=== PATIENT | female | born 1955 | race Caucasian/White ===

== ENCOUNTER 2019-06-10 21:12 | Emergency (ER) | payer OTHER ==
[~2019-06-10] VITALS: Ht 149.9 cm; Wt 61.2 kg
[2019-06-10 21:15] VITALS: BP 139/91
--- NOTE | 2019-06-10 21:15 | NUR ---
ED Nurse Note: PATIENT BROUGHT IN BY RA FROM HOME DUE TO INCREASED WEAKNESS AND RASH ON CHEEKS X 2 WEEK. BS >500 PER EMS. PT HAS MEDICAL HISTORY OF DM. PER PATIENT SHE IS COMPLIANT WITH HER MEDICATION BUT IS NOT CHECKING HER BLOOD SUGAR REGULARY. ALERT, ORIENTED, VERBALLY RESPONSIVE. BREATHING EVEN AND UNLABORED. NO SOB. AFEBRILE. VSS.
--- NOTE | 2019-06-10 21:24 | Emergency Room Report ---
History of Present Illness General Chief Complaint: Generalized Weakness Source: Patient Present Illness HPI Patient is a 63-year-old female presents after increased generalized weakness and dizziness. Patient had recent skin rash. This had onset approximately 2 weeks ago. She describes having increased generalized itching. Prior history of rheumatoid arthritis. Patient is currently only taking it metformin. She had previously been on other medications but did not have it authorized by her insurance. She has been taking Benadryl due to itching. She reports having increased dizziness as well as joint pain and increased thirst. She had prior history of diabetes but was noted to have uncontrolled blood sugar by paramedics. She is not currently on prednisone but has taken this in the past. Blood sugar was HI on initial check. She reports only taking metformin. Allergies: Coded Allergies: No Known Allergies (Unverified , 06/10/19) Patient History Past Medical History: see triage record Last Menstrual Period: UNK Reviewed Nursing Documentation: PMH: Agreed; PSxH: Agreed Nursing Documentation-PMH Past Medical History: No History, Except For Hx Hypertension: Yes Hx Diabetes: Yes Review of Systems All Other Systems: negative except mentioned in HPI Physical Exam Vital Signs Date Time Temp Pulse Resp B/P (MAP) Pulse Ox O2 Delivery O2 Flow Rate FiO2 06/10/19 21:08 98.4 111 16 171/91 (117) 98 Room Air Sp02 EP Interpretation: reviewed, normal General Appearance: normal inspection, alert, GCS 15, non-toxic, Chronically Ill Head: normocephalic, atraumatic Eyes: bilateral eye EOMI ENT: normal ENT inspection, hearing grossly normal, normal voice Neck: normal inspection, full range of motion, supple, no bony tend Respiratory: normal inspection, lungs clear, normal breath sounds, no respiratory distress, no retraction, no wheezing Cardiovascular #1: regular rate, rhythm, no edema Gastrointestinal: normal inspection, normal bowel sounds, non tender, soft, no guarding, no hernia Genitourinary: no CVA tenderness Musculoskeletal: normal inspection, back normal, normal range of motion Neurologic: normal inspection, alert, oriented x3, responsive, dip tube assembler machine III-XII nml as tested, speech normal Psychiatric: normal inspection, judgement/insight normal, mood/affect normal Skin: other - generalized itchy rash no urticaria Medical Decision Making Diagnostic Impression: Primary Impression: Uncontrolled diabetes mellitus Additional Impressions: Decreased calculated GFR Dehydration ER Course Patient presented for generalized weakness and itchiness. Differential diagnosis included was not limited to allergic reaction, hyperglycemia, anemia, urinary tract infection, electrolyte abnormality, hypothyroidism, myocardial infarction, myasthenia gravis, dehydration, among others. Patient has prior history of diabetes and was noted to have markedly elevated blood sugar. Patient appears to have some generalized rash which does not appear to be urticarial in nature. Because of complexity of patient's case laboratory tests and imaging studies were ordered. Patient is awake and alert. She is moving all extremities. She reports having some pain to her neck which is more likely rheumatoid in nature. Patient was given atarax with improvement in itching. Blood sugar was markedly elevated initially and patient was started on IV fluids and IV insulin. Patient was rechecked and had improvement in blood sugar. Patient was reportedly with baseline blood sugar in 300s. I offered admission to hospital which patient refused despite knowledge that she may have some problems related to rebound hyperglycemia or other problems. At the time of discharge, patient was awake alert and oriented and able to ambulate with a steady gait. Itching and rash had improved. Patient was advised to return if worse blood sugar dizziness or any concerns. Labs Test 06/10/19 21:45 White Blood Count 9.3 K/UL (4.8-10.8) Red Blood Count 4.65 M/UL (4.20-5.40) Hemoglobin 14.3 G/DL (12.0-16.0) Hematocrit 43.0 % (37.0-47.0) Mean Corpuscular Volume 92 FL (80-99) Mean Corpuscular Hemoglobin 30.8 PG (27.0-31.0) Mean Corpuscular Hemoglobin Concent 33.3 G/DL (32.0-36.0) Red Cell Distribution Width 11.5 % (11.6-14.8) Platelet Count 422 K/UL (150-450) Mean Platelet Volume 7.0 FL (6.5-10.1) Neutrophils (%) (Auto) 59.3 % (45.0-75.0) Lymphocytes (%) (Auto) 32.8 % (20.0-45.0) Monocytes (%) (Auto) 5.9 % (1.0-10.0) Eosinophils (%) (Auto) 1.2 % (0.0-3.0) Basophils (%) (Auto) 0.9 % (0.0-2.0) Urine Color Pale yellow Urine Appearance Slightly cloudy Urine pH 7 (4.5-8.0) Urine Specific [place] 1.010 (1.005-1.035) Urine Protein Negative (NEGATIVE) Urine Glucose (UA) 4+ (NEGATIVE) Urine Ketones Negative (NEGATIVE) Urine Blood Negative (NEGATIVE) Urine Nitrite Negative (NEGATIVE) Urine Bilirubin Negative (NEGATIVE) Urine Urobilinogen Normal MG/DL (0.0-1.0) Urine Leukocyte Esterase Negative (NEGATIVE) Urine RBC 0-2 /HPF (0 - 2) Urine WBC 2-4 /HPF (0 - 2) Urine Squamous Epithelial Cells Few /LPF (NONE/OCC) Urine Bacteria Few /HPF (NONE) Sodium Level 132 MMOL/L (136-145) Potassium Level 4.5 MMOL/L (3.5-5.1) Chloride Level 95 MMOL/L (98-107) Carbon Dioxide Level 27 MMOL/L (21-32) Anion Gap 10 mmol/L (5-15) Blood Urea Nitrogen 17 mg/dL (7-18) Creatinine 1.1 MG/DL (0.55-1.30) Estimat Glomerular Filtration Rate 50.3 mL/min (>60) Glucose Level 775 MG/DL (74-106) Calcium Level 9.2 MG/DL (8.5-10.1) Total Bilirubin 0.2 MG/DL (0.2-1.0) Aspartate Amino Transf (AST/SGOT) < 5 U/L (15-37) Alanine Aminotransferase (ALT/SGPT) 23 U/L (12-78) Alkaline Phosphatase 90 U/L (46-116) Troponin I 0.000 ng/mL (0.000-0.056) Total Protein 6.9 G/DL (6.4-8.2) Albumin 3.2 G/DL (3.4-5.0) Globulin 3.7 g/dL Albumin/Globulin Ratio 0.9 (1.0-2.7) Lipase 190 U/L (73-393) Thyroid Stimulating Hormone (TSH) 2.086 uiU/mL (0.358-3.740) EKG Diagnostic Results Rate: normal - 104 Rhythm: NSR ST Segments: other - qtc 483 Last Vital Signs Date Time Temp Pulse Resp B/P (MAP) Pulse Ox O2 Delivery O2 Flow Rate FiO2 06/10/19 21:08 98.4 111 16 171/91 (841) 98 Room Air Status: improved Disposition: HOME, SELF-CARE Condition: Stable Scripts Hydroxyzine HCl (Hydroxyzine HCl) 25 Mg Tablet 25 MG ORAL FOUR TIMES A DAY, #30 TAB Prov: Garrick Harvey MD 06/11/19 Garrick Harvey MD Jun 10, 2019 21:24
[2019-06-10] MEDS ORDERED: HydrOXYzine tab 25mg tab ORAL ONE (21:30)
--- NOTE | 2019-06-10 21:56 | NUR ---
ED Nurse Note: Pt taken for CT.
--- NOTE | 2019-06-10 22:05 | NUR ---
ED Nurse Note: CAME BACK FROM CT.
--- NOTE | 2019-06-10 22:13 | NUR ---
ED Nurse Note: BEDSIDE ACCUCHECK SAYS "HIGH". MD NOTIFIED.
[2019-06-10 22:16] LABS: APPEARANCE,URINE SLIGHTLY CLOUDY; BILIRUBIN, URINE NEGATIVE (NEGATIVE); COLOR,URINE PALE YELLOW; GLUCOSE, URINE (UA) 4+ (NEGATIVE); KETONES,URINE NEGATIVE (NEGATIVE); LEUKOCYTE ESTERASE ,URINE NEGATIVE (NEGATIVE); NITRITE,URINE NEGATIVE (NEGATIVE); PH,URINE 7 (4.5-8.0); PROTEIN,URINE NEGATIVE (NEGATIVE); UROBILINOGEN,URINE NORMAL MG/DL (0.0-1.0)
[2019-06-10 22:19] LABS: BASOPHILS % (AUTO) 0.9 % (0.0-2.0); EOSINOPHILS % (AUTO) 1.2 % (0.0-3.0); HEMOGLOBIN 14.3 G/DL (12.0-16.0); LYMPHOCYTES % (AUTO) 32.8 % (20.0-45.0); MEAN CORPUSCULAR VOLUME 92 FL (80-99); MONOCYTES % (AUTO) 5.9 % (1.0-10.0); NEUTROPHILS % (AUTO) 59.3 % (45.0-75.0); PLATELET COUNT 422 K/UL (150-450); RED BLOOD COUNT 4.65 M/UL (4.20-5.40); RED CELL DISTRIBUTION WIDTH 11.5 % (11.6-14.8); WHITE BLOOD COUNT 9.3 K/UL (4.8-10.8)
[2019-06-10 22:28] LABS: ANION GAP 10 mmol/L (5-15); BLOOD UREA NITROGEN 17 mg/dL (7-18); CALCIUM 9.2 MG/DL (8.5-10.1); CARBON DIOXIDE 27 MMOL/L (21-32); CHLORIDE 95 MMOL/L (98-107); CREATININE 1.1 MG/DL (0.55-1.30); POTASSIUM 4.5 MMOL/L (3.5-5.1); SODIUM 132 MMOL/L (136-145)
[2019-06-10] MEDS ORDERED: Insulin Human Regular 100units/ml 3ml IV ONE (22:30)
[2019-06-10 22:39] LABS: ALANINE AMINOTRANSFERASE 23 U/L (12-78); ALBUMIN 3.2 G/DL (3.4-5.0); ALBUMIN/GLOBULIN RATIO 0.9 (1.0-2.7); ALKALINE PHOSPHATASE 90 U/L (46-116); BILIRUBIN,TOTAL 0.2 MG/DL (0.2-1.0)
[2019-06-10 22:42] LABS: ASPARTATE AMINO TRANSFERASE < 5 U/L (15-37)
--- NOTE | 2019-06-10 23:17 | Diagnostic Imaging Report ---
Indications: Headache Technique: Spiral acquisitions obtained through the brain. Angled axial and coronal 5 x 5 mm slices were reconstructed. Total dose length product 1254 mGycm. CTDI vol(s) 60 mGy. Dose reduction achieved using automated exposure control Comparison: None. Findings: No acute intracranial hemorrhage or edema. No mass effect nor midline shift. Normal zamarripa-white differentiation. Intact calvarium. Visualized orbits and sinuses are unremarkable. The calvarium is intact. Impression: Negative This agrees with the preliminary interpretation provided overnight by [facility] teleradiology service. The CT scanner at [facility] is accredited by the [employer] and the scans are performed using protocols designed to limit radiation exposure to as low as reasonably achievable to attain images of sufficient resolution adequate for diagnostic evaluation.
[2019-06-11 00:04] VITALS: BP 138/84
--- NOTE | 2019-06-11 00:26 | NUR ---
ED Nurse Note: BEDSIDE ACCUCHECK 366. MD NOTIFIED. INSULIN DRIP WAS STOPPED ORDERED.
[2019-06-11] MEDS ORDERED: ATARAX25 MG ORAL (01:16)
[2019-06-11 01:28] VITALS: BP 129/76
[2019-06-11 01:29] VITALS: BP 129/76
--- NOTE | 2019-06-11 01:29 | NUR ---
ED Nurse Note: Pt cleared by ERMD for discharge. DC instructions/prescription was given and explained to pt and verbalized understanding of teachings. All medical devices such as ID band and IV line removed. Pt is AAO x4, ambulatory and left with all personal belongings. Accompanied by family members.
--- NOTE | 2019-06-11 17:50 | Cardiology Report ---
APPROVED REPORT EKG Measurement Heart [id number] VT 122P58 [id number] Sinus tachycardia Possible Left atrial enlargement Borderline ECG
== END 2019-06-11 01:29 | disposition home or self-care (01) ==
LOC: EDBD 21:12 → EMR 21:45
DX: E11.65 Type 2 diabetes mellitus with hyperglycemia (principal); E86.0 Dehydration; R94.4 Abnormal results of kidney function studies; I10 Essential (primary) hypertension; R21 Rash and other nonspecific skin eruption
CPT/HCPCS: 36415; 70450; 80053; 81001; 83690; 84443; 84484; 85025; 93005; 96361; 96365; 96366; 96375; 99284; J1815; J1817; J7040; J7030

== ENCOUNTER 2020-06-30 18:00 | Emergency (ER) | payer OTHER ==
[~2020-06-30] VITALS: Ht 149.9 cm; Wt 73.0 kg
[~2020-06-30 18:00] MED LIST: ATARAX25 MG ORAL
[2020-06-30] MEDS ORDERED: Omnipaque-300 100ml vial INJ PRN (18:15)
--- NOTE | 2020-06-30 18:25 | Emergency Room Report ---
History of Present Illness General Chief Complaint: General Complaint Source: Patient Present Illness HPI 64-year-old female history of immunodeficiency on weekly IVIG infusions, diabetes here with 1 week of generalized fatigue, 1 week of generalized rash, 1 week of white stools. Patient has never had these symptoms before. She was sent in by her methodologist Dr. Randall. Has not taken any medications for these symptoms. Fevers, chills, chest pain, palpitation, shortness of breath, back pain, abdominal pain, nausea, vomiting, diarrhea, dysuria. Allergies: Coded Allergies: METFORMIN (Verified Allergy, Unknown, 06/30/20) COVID-19 Screening Contact w/high risk pt: No Experienced COVID-19 symptoms?: No COVID-19 Testing performed PULP OPERATOR: No Nursing Documentation-[facility] Past Medical History: No History, Except For Hx Hypertension: Yes Hx Diabetes: Yes Review of Systems All Other Systems: negative except mentioned in HPI Physical Exam Vital Signs Date Time Temp Pulse Resp B/P (MAP) Pulse Ox O2 Delivery O2 Flow Rate FiO2 06/30/20 18:03 96.8 111 15 169/84 (112) 97 Room Air Sp02 EP Interpretation: reviewed, normal General Appearance: no apparent distress, alert, non-toxic Head: normocephalic, atraumatic Eyes: bilateral eye normal inspection, bilateral eye PERRL ENT: hearing grossly normal, normal pharynx, no angioedema, normal voice Neck: full range of motion, supple/symm/no masses Respiratory: chest non-tender, lungs clear, normal breath sounds, speaking full sentences Cardiovascular #1: regular rate, rhythm, no edema Cardiovascular #2: 2+ carotid (R), 2+ carotid (L), 2+ radial (R), 2+ radial (L), 2+ dorsalis pedis (R), 2+ dorsalis pedis (L) Gastrointestinal: normal bowel sounds, non tender, soft, non-distended, no guarding, no rebound Rectal: deferred Genitourinary: normal inspection, no CVA tenderness Musculoskeletal: back normal, normal range of motion, gait/station normal, non- tender Neurologic: alert, motor strength/tone normal, sensory intact, responsive, speech normal Psychiatric: judgement/insight normal, memory normal, mood/affect normal, no suicidal/homicidal ideation Lymphatic: no adenopathy Medical Decision Making Diagnostic Impression: Primary Impression: Supratherapeutic INR Additional Impressions: Pulmonary emboli Weakness ER Course CT abd pel: IMPRESSION: No acute findings within the abdomen or pelvis. Nondisplaced subacute fracture left inferior pubic ramus with callus formation. Nonspecific 1.2 cm hypoattenuating lesion left hepatic lobe is nonspecific but may represent a hemangioma. Consider MRI for further characterization if clinically indicated. CT chest: IMPRESSION: Prominently linear filling defects within a right segmental/subsegmental pulmonary artery branch point and a smaller linear filling defect within a left subsegmental branch are compatible with pulmonary emboli, which are favored to be chronic. Laboratory Tests Test 06/30/20 18:43 06/30/20 18:50 06/30/20 20:40 White Blood Count 6.6 K/UL (4.8-10.8) Red Blood Count 4.45 M/UL (4.20-5.40) Hemoglobin 13.6 G/DL (12.0-16.0) Hematocrit 41.3 % (37.0-47.0) Mean Corpuscular Volume 93 FL (80-99) Mean Corpuscular Hemoglobin 30.5 PG (27.0-31.0) Mean Corpuscular Hemoglobin Concent 32.9 G/DL (32.0-36.0) Red Cell Distribution Width 15.2 % (11.6-14.8) H Platelet Count 398 K/UL (150-450) Mean Platelet Volume 6.8 FL (6.5-10.1) Neutrophils (%) (Auto) 48.1 % (45.0-75.0) Lymphocytes (%) (Auto) 41.5 % (20.0-45.0) Monocytes (%) (Auto) 7.1 % (1.0-10.0) Eosinophils (%) (Auto) 1.6 % (0.0-3.0) Basophils (%) (Auto) 1.8 % (0.0-2.0) Prothrombin Time 38.8 SEC (9.30-11.50) H Prothrombin Time INR 3.9 (0.9-1.1) H Activated Partial Thromboplast Time 36 SEC (23-33) H Sodium Level 139 MMOL/L (136-145) Potassium Level 4.0 MMOL/L (3.5-5.1) Chloride Level 105 MMOL/L (98-107) Carbon Dioxide Level 28 MMOL/L (21-32) Anion Gap 6 mmol/L (5-15) Blood Urea Nitrogen 11 mg/dL (7-18) Creatinine 0.9 MG/DL (0.55-1.30) Estimated Glomerular Filtration Rate > 60 mL/min (>60) Glucose Level 137 MG/DL (74-106) H Calcium Level 9.3 MG/DL (8.5-10.1) Total Bilirubin 0.4 MG/DL (0.2-1.0) Aspartate Amino Transferase (AST) 30 U/L (15-37) Alanine Aminotransferase (ALT) 29 U/L (12-78) Alkaline Phosphatase 105 U/L (46-116) Troponin I 0.002 ng/mL (0.000-0.056) Total Protein 7.4 G/DL (6.4-8.2) Albumin 3.5 G/DL (3.4-5.0) Globulin 3.9 g/dL Albumin/Globulin Ratio 0.9 (1.0-2.7) L Lipase 110 U/L (73-393) POC Whole Blood Glucose 122 MG/DL (74-106) H Urine Color Pale yellow Urine Appearance Slightly cloudy Urine pH 6 (4.5-8.0) Urine Specific [place] 1.005 (1.005-1.035) Urine Protein Negative (NEGATIVE) Urine Glucose (UA) Negative (NEGATIVE) Urine Ketones Negative (NEGATIVE) Urine Blood Negative (NEGATIVE) Urine Nitrite Negative (NEGATIVE) Urine Bilirubin Negative (NEGATIVE) Urine Urobilinogen Normal MG/DL (0.0-1.0) Urine Leukocyte Esterase 2+ (NEGATIVE) H Urine RBC 0-2 /HPF (0 - 2) Urine WBC 20-30 /HPF (0 - 2) H Urine Squamous Epithelial Cells Moderate /LPF (NONE/OCC) H Urine Bacteria Moderate /HPF (NONE) H 64-year-old male with history of immunodeficiency on weekly IVIG infusions, pulmonary embolism on warfarin, here with generalized weakness. No episodes of bleeding. Patient was hemodynamically stable and neurovascular intact in the emergency department. She says that she felt normal here. Urinalysis unremarkable. CBC, CMP, troponin, EKG all unremarkable. CT chest abdomen pelvis was performed because the patient already had a CT chest abdomen and pelvis scheduled for next week. CT chest segment showed evidence of patient's old pulmonary emboli. She had no episodes of chest pain, shortness of breath, or any vital sign abnormalities in the emergency department. She has been consistent with her warfarin. INR was 3.9. CT abdomen pelvis was unremarkable. I spoke with the patient's methodologist who agreed the patient was stable for discharge and follow-up as an outpatient. This was relayed to the patient. Discharged in stable condition. Last Vital Signs Date Time Temp Pulse Resp B/P (MAP) Pulse Ox O2 Delivery O2 Flow Rate FiO2 06/30/20 18:03 96.8 111 15 169/84 (112) 97 Room Air Vlad Tiwari M.D. Jun 30, 2020 18:25
[2020-06-30] MEDS ORDERED: Omnipaque-300 100ml vial INJ ONE (18:30)
[2020-06-30 18:56] VITALS: BP 139/75
[2020-06-30 19:06] LABS: BASOPHILS % (AUTO) 1.8 % (0.0-2.0); EOSINOPHILS % (AUTO) 1.6 % (0.0-3.0); HEMATOCRIT 41.3 % (37.0-47.0); HEMOGLOBIN 13.6 G/DL (12.0-16.0); LYMPHOCYTES % (AUTO) 41.5 % (20.0-45.0); MEAN CORPUSCULAR VOLUME 93 FL (80-99); MONOCYTES % (AUTO) 7.1 % (1.0-10.0); NEUTROPHILS % (AUTO) 48.1 % (45.0-75.0); PLATELET COUNT 398 K/UL (150-450); RED BLOOD COUNT 4.45 M/UL (4.20-5.40); RED CELL DISTRIBUTION WIDTH 15.2 % (11.6-14.8); WHITE BLOOD COUNT 6.6 K/UL (4.8-10.8)
[2020-06-30 19:16] LABS: ANION GAP 6 mmol/L (5-15); BLOOD UREA NITROGEN 11 mg/dL (7-18); CALCIUM 9.3 MG/DL (8.5-10.1); CARBON DIOXIDE 28 MMOL/L (21-32); CHLORIDE 105 MMOL/L (98-107); CREATININE 0.9 MG/DL (0.55-1.30); SODIUM 139 MMOL/L (136-145)
[2020-06-30 19:21] LABS: ALANINE AMINOTRANSFERASE 29 U/L (12-78); ALBUMIN 3.5 G/DL (3.4-5.0); ALBUMIN/GLOBULIN RATIO 0.9 (1.0-2.7); ALKALINE PHOSPHATASE 105 U/L (46-116); ASPARTATE AMINO TRANSFERASE 30 U/L (15-37); BILIRUBIN,TOTAL 0.4 MG/DL (0.2-1.0)
[2020-06-30 19:24] LABS: INR 3.9 (0.9-1.1)
[2020-06-30 19:30] VITALS: BP 129/72
--- NOTE | 2020-06-30 20:29 | Diagnostic Imaging Report ---
EXAM: CT Abdomen and Pelvis With Intravenous Contrast CLINICAL HISTORY: PAIN TECHNIQUE: Axial computed tomography images of the abdomen and pelvis with intravenous contrast. CTDI is 18.1 mGy and DLP is 850.2 mGy-cm. One or more of the following dose reduction techniques were used: automated exposure control, adjustment of the mA and/or kV according to patient size, use of iterative reconstruction technique. COMPARISON: No relevant prior studies available. FINDINGS: Lung bases: Unremarkable. No mass. No consolidation. ABDOMEN: Liver: There is a 1.2 cm hypoattenuating lesion within the left hepatic lobe, segment 2 which is nonspecific. There is an additional subcentimeter mixed density lesion within the inferior right hepatic lobe, segment 7 which is too small to characterize. Gallbladder and bile ducts: Unremarkable. No calcified stones. No ductal dilation. Pancreas: Unremarkable. No mass. No ductal dilation. Spleen: Unremarkable. No splenomegaly. Adrenals: Unremarkable. No mass. Kidneys and ureters: Unremarkable. No solid mass. No hydronephrosis. Stomach and bowel: Unremarkable. No obstruction. No mucosal thickening. PELVIS: Appendix: No findings to suggest acute appendicitis. Bladder: Unremarkable. No mass. Reproductive: Unremarkable as visualized. ABDOMEN and PELVIS: Intraperitoneal space: Unremarkable. No free air. No significant fluid collection. Bones/joints: Nondisplaced fracture of the left inferior pubic ramus with callus formation which is favored to be subacute in etiology. Grade 1 anterolisthesis of L4 upon L5. No acute fracture. No dislocation. Soft tissues: Patchy attenuation within the right ventral subcutaneous adipose tissues may reflect changes of recent injection or represent a contusion. Vasculature: Unremarkable. No abdominal aortic aneurysm. Lymph nodes: Unremarkable. No enlarged lymph nodes. IMPRESSION: No acute findings within the abdomen or pelvis. Nondisplaced subacute fracture left inferior pubic ramus with callus formation. Nonspecific 1.2 cm hypoattenuating lesion left hepatic lobe is nonspecific but may represent a hemangioma. Consider MRI for further characterization if clinically indicated. EXAM: CT Chest With Intravenous Contrast CLINICAL HISTORY: PAIN TECHNIQUE: Axial computed tomography images of the chest with intravenous contrast. CTDI is 18.1 mGy and DLP is 850.2 mGy-cm. One or more of the following dose reduction techniques were used: automated exposure control, adjustment of the mA and/or kV according to patient size, use of iterative reconstruction technique. COMPARISON: No relevant prior studies available. FINDINGS: Lungs: Unremarkable. No mass. No consolidation. Pleural space: Unremarkable. No pneumothorax. No significant effusion. Heart: Unremarkable. No cardiomegaly. No significant pericardial effusion. Bones/joints: No dislocation. Soft tissues: Unremarkable. Vasculature: Linear filling defects within a segmental/subsegmental pulmonary artery branch point supplying the posterior right lower lobe is compatible with a pulmonary embolism, favored to be chronic. An additional smaller linear filling defect is also visualized within a subsegmental branch supplying the left lower lobe, also likely representing a chronic pulmonary embolism. No thoracic aortic aneurysm. Lymph nodes: Unremarkable. No enlarged lymph nodes. Liver: See above IMPRESSION: Prominently linear filling defects within a right segmental/subsegmental pulmonary artery branch point and a smaller linear filling defect within a left subsegmental branch are compatible with pulmonary emboli, which are favored to be chronic.
[2020-06-30 20:51] LABS: APPEARANCE,URINE SLIGHTLY CLOUDY; BILIRUBIN, URINE NEGATIVE (NEGATIVE); COLOR,URINE PALE YELLOW; GLUCOSE, URINE (UA) NEGATIVE (NEGATIVE); KETONES,URINE NEGATIVE (NEGATIVE); LEUKOCYTE ESTERASE ,URINE 2+ (NEGATIVE); NITRITE,URINE NEGATIVE (NEGATIVE); PH,URINE 6 (4.5-8.0); PROTEIN,URINE NEGATIVE (NEGATIVE); UROBILINOGEN,URINE NORMAL MG/DL (0.0-1.0)
[2020-06-30 21:00] VITALS: BP 132/76
[2020-06-30 21:20] VITALS: BP 132/76
--- NOTE | 2020-07-01 14:35 | Cardiology Report ---
APPROVED REPORT EKG Measurement Heart [id number] DE 118P48 [id number] <Conclusion> Sinus tachycardia Otherwise normal ECG
[2020-07-03] MEDS ORDERED: NITROFURANTOIN100 M2 ORAL (14:10)
== END 2020-06-30 21:20 | disposition home or self-care (01) ==
LOC: EMR 18:15
DX: R79.1 Abnormal coagulation profile (principal); I26.99 Other pulmonary embolism without acute cor pulmonale; R53.1 Weakness; I10 Essential (primary) hypertension; E11.9 Type 2 diabetes mellitus without complications; Z88.8 Allergy status to other drugs, medicaments and biological substances
CPT/HCPCS: 36415; 71260; 74177; 80053; 81003; 82962; 83690; 84484; 85025; 85610; 85730; 86850; 86900; 86901; 87086; 87181; 93005; 96360; 99284; J7030; Q9965